=== PATIENT | female | born 1965 | race Asian ===

== ENCOUNTER 2019-08-29 22:32 | Emergency (ER) | payer OTHER ==
[~2019-08-29] VITALS: Ht 172.7 cm; Wt 83.0 kg
[2019-08-29 22:39] VITALS: Ht 172.7 cm; Wt 83.0 kg
[2019-08-30 00:27] VITALS: BP 104/66
== END 2019-08-30 00:27 | disposition home or self-care (01) ==
LOC: ED 22:32
DX: M54.5 Low back pain (principal); E05.90 Thyrotoxicosis, unspecified without thyrotoxic crisis or storm
CPT/HCPCS: J1885